=== PATIENT | female | born 1985 | race Caucasian/White ===

== ENCOUNTER 2020-10-10 11:30 | Outpatient (CLI) | payer OTHER ==
[~2020-10-10 11:30] MED LIST: TIZANIDINE HCL2 MG PO
== END 2020-10-10 11:39 | disposition home or self-care (01) ==
LOC: LAB 11:30
DX: R19.4 Change in bowel habit (principal)

== ENCOUNTER 2020-10-18 07:37 | Outpatient (CLI) | payer OTHER | END 2020-10-18 07:56 | disposition home or self-care (01) | LOC: TOM 07:37 | PROVIDERS: ATTEND Internal Medicine Gastroenterology | DX: Q44.6 Cystic disease of liver (principal); R19.4 Change in bowel habit; N39.0 Urinary tract infection, site not specified ==